=== PATIENT | male | born 1935 | race Caucasian/White ===

== ENCOUNTER 2020-02-05 07:00 | Day surgery (SDC) | payer MEDICARE ==
[2020-02-02 12:10] LABS: COVID AG,FIA SOURCE NASOPHARYNGEAL
[~2020-02-05] VITALS: Ht 170.2 cm; Wt 76.5 kg
[~2020-02-05 07:00] MED LIST: 0.9% SODIUM CHLORIDE 10 ML SYRINGE IVP PRN; CYCLOPENTOLATE HCL 1% 2 ML OPHTHALMIC SOLUTION ONE; CYCLOPENTOLATE HCL 2% 2 ML OPHTHALMIC SOLUTION OD SCH; KETOROLAC TROMETHAMINE 0.5% 5 ML OPHTHALMIC SOLUTION ONE; MOXIFLOXACIN HCL 0.5% 3 ML OPHTHALMIC SOLUTION ONE; PHENYLEPHRINE HCL 2.5% 2 ML OPHTHALMIC SOLUTION ONE; RINGERS SOLUTION,LACTATED 500 ML IV ONE; TROPICAMIDE 1% 2 ML OPHTHALMIC SOLUTION ONE
[2020-02-05] MEDS ORDERED: HYALURONATE SOD/CHONDROITIN SOD 0.5 ML VIAL IO ONE (07:01)
[2020-02-05] MEDS ORDERED: BALANCED SALT 15 ML OPHTHALMIC IRRIG.SOLN IO ONE (07:01)
[2020-02-05] MEDS ORDERED: PrednisoLONE ACETATE 1% 5 ML OPHTHALMIC SUSPENSION OD ONE (07:01)
[2020-02-05] MEDS ORDERED: POVIDONE-IODINE 10% 15 ML SOLUTION UD TP ONE (07:01)
[2020-02-05] MEDS ORDERED: EPINEPHrine 1:1,000 [1 MG/ML] AMP IM ONE (07:01)
[2020-02-05] MEDS ORDERED: LIDOCAINE/PF 1% 2 ML VIAL IARTIC ONE (07:01)
[2020-02-05] MEDS ORDERED: TETRACAINE HCL/PF 0.5% 4 ML OPHTHALMIC SOLUTION OD ONE (07:01)
[2020-02-05] MEDS: CYCLOPENTOLATE HCL 1% 2 ML OPHTHALMIC SOLUTION OD SCH ×3 (07:41→08:00)
[2020-02-05] MEDS: PHENYLEPHRINE HCL 2.5% 2 ML OPHTHALMIC SOLUTION OD SCH ×3 (07:41→08:00)
[2020-02-05] MEDS: KETOROLAC TROMETHAMINE 0.5% 5 ML OPHTHALMIC SOLUTION OD SCH ×3 (07:41→08:00)
[2020-02-05] MEDS: TROPICAMIDE 1% 2 ML OPHTHALMIC SOLUTION OD SCH ×3 (07:42→08:00)
[2020-02-05] MEDS: MOXIFLOXACIN HCL 0.5% 3 ML OPHTHALMIC SOLUTION OD SCH ×3 (07:42→08:00)
[2020-02-05] MEDS ORDERED: AcetaZOLAMIDE 250 MG TABLET ONE (09:58)
[2020-02-05] MEDS ORDERED: DORZOLAMIDE/TIMOLOL 2-0.5% [22.3-6.8MG/ML] 10 ML OPHTHALMIC SOLUTION OD ONE (10:00)
[2020-02-05] MEDS ORDERED: AcetaZOLAMIDE 250 MG TABLET PO ONE (10:00)
[2020-02-05] MEDS ORDERED: DORZOLAMIDE/TIMOLOL 2-0.5% [22.3-6.8MG/ML] 10 ML OPHTHALMIC SOLUTION ONE (10:00)
[2020-02-05] MEDS ORDERED: FentaNYL CITRATE-PF 100 MCG/2 ML VIAL IVP ONE (12:20)
[2020-02-05] MEDS ORDERED: MIDAZOLAM HCL 2 MG/2 ML VIAL IVP ONE (12:20)
== END 2020-02-05 10:25 | disposition home or self-care (01) ==
LOC: SURGERY 07:00
PROVIDERS: ATTEND Ophthalmology Glaucoma Specialist
DX: H25.11 Age-related nuclear cataract, right eye (principal); I10 Essential (primary) hypertension; Z88.0 Allergy status to penicillin; Z79.82 Long term (current) use of aspirin; Z79.899 Other long term (current) drug therapy; F17.210 Nicotine dependence, cigarettes, uncomplicated; Z20.828 Contact with and (suspected) exposure to other viral communicable diseases
CPT/HCPCS: 66982; 87426; 93005; C9803; J0171; J2250; J3010; J3490; J7120; V2632

== ENCOUNTER 2020-06-10 05:54 | Day surgery (SDC) | payer MEDICARE ==
[2020-06-09 12:32] LABS: COVID AG,FIA SOURCE NASOPHARYNGEAL
[~2020-06-10] VITALS: Ht 167.6 cm; Wt 76.4 kg
[~2020-06-10 05:54] MED LIST changes: -0.9% SODIUM CHLORIDE 10 ML SYRINGE IVP PRN; +AMLO10TA55 PO; +ASPI-1522 PO; +ATOR20TA65 PO; -CYCLOPENTOLATE HCL 1% 2 ML OPHTHALMIC SOLUTION ONE; -CYCLOPENTOLATE HCL 2% 2 ML OPHTHALMIC SOLUTION OD SCH; +DIPH25CA48 PO; +HYDR12.54 PO; -KETOROLAC TROMETHAMINE 0.5% 5 ML OPHTHALMIC SOLUTION ONE; -MOXIFLOXACIN HCL 0.5% 3 ML OPHTHALMIC SOLUTION ONE; +OMEP40CA12 PO; -PHENYLEPHRINE HCL 2.5% 2 ML OPHTHALMIC SOLUTION ONE; -RINGERS SOLUTION,LACTATED 500 ML IV ONE; -TROPICAMIDE 1% 2 ML OPHTHALMIC SOLUTION ONE
[2020-06-10] MEDS ORDERED: KETOROLAC TROMETHAMINE 0.5% 5 ML OPHTHALMIC SOLUTION ONE (06:03)
[2020-06-10] MEDS ORDERED: MOXIFLOXACIN HCL 0.5% 3 ML OPHTHALMIC SOLUTION ONE (06:03)
[2020-06-10] MEDS ORDERED: CYCLOPENTOLATE HCL 1% 2 ML OPHTHALMIC SOLUTION ONE (06:04)
[2020-06-10] MEDS ORDERED: TROPICAMIDE 1% 2 ML OPHTHALMIC SOLUTION ONE (06:04)
[2020-06-10] MEDS ORDERED: PHENYLEPHRINE HCL 2.5% 2 ML OPHTHALMIC SOLUTION ONE (06:04)
[2020-06-10] MEDS ORDERED: RINGERS SOLUTION,LACTATED 500 ML IV ONE ×2 (06:04→06:55)
[2020-06-10] MEDS: MOXIFLOXACIN HCL 0.5% 3 ML OPHTHALMIC SOLUTION OS SCH ×3 (06:51→07:04)
[2020-06-10] MEDS: TROPICAMIDE 1% 2 ML OPHTHALMIC SOLUTION OS SCH ×3 (06:52→07:04)
[2020-06-10] MEDS: CYCLOPENTOLATE HCL 1% 2 ML OPHTHALMIC SOLUTION OS SCH ×3 (06:52→07:03)
[2020-06-10] MEDS: KETOROLAC TROMETHAMINE 0.5% 5 ML OPHTHALMIC SOLUTION OS SCH ×3 (06:52→07:04)
[2020-06-10] MEDS: PHENYLEPHRINE HCL 2.5% 2 ML OPHTHALMIC SOLUTION OS SCH ×3 (06:52→07:03)
[2020-06-10] MEDS ORDERED: HYALURONATE SOD/CHONDROITIN SOD 0.5 ML VIAL IO ONE (12:00)
[2020-06-10] MEDS ORDERED: FentaNYL CITRATE PF 100 MCG/2 ML VIAL IVP ONE (12:00)
[2020-06-10] MEDS ORDERED: BALANCED SALT 15 ML OPHTHALMIC IRRIG.SOLN OS ONE (12:00)
[2020-06-10] MEDS ORDERED: PrednisoLONE ACETATE 1% 5 ML OPHTHALMIC SUSPENSION OS ONE (12:00)
[2020-06-10] MEDS ORDERED: TETRACAINE HCL/PF 0.5% 4 ML OPHTHALMIC SOLUTION OS ONE (12:00)
[2020-06-10] MEDS ORDERED: HYALURONATE SOD 8.5MG/0.85ML 10 MG/ML SYRINGE IO ONE ×2 (12:00)
[2020-06-10] MEDS ORDERED: MIDAZOLAM HCL 2 MG/2 ML VIAL IVP ONE (12:00)
== END 2020-06-10 10:05 | disposition home or self-care (01) ==
LOC: SURGERY 05:54
PROVIDERS: ATTEND Ophthalmology Glaucoma Specialist
DX: H25.12 Age-related nuclear cataract, left eye (principal); I10 Essential (primary) hypertension; K21.9 Gastro-esophageal reflux disease without esophagitis; Z20.822 Contact with and (suspected) exposure to COVID-19; Z79.899 Other long term (current) drug therapy; F17.210 Nicotine dependence, cigarettes, uncomplicated; Z88.0 Allergy status to penicillin
CPT/HCPCS: 66984; 87426; 93005; C9803; J2250; J3010; J7120; V2632